=== PATIENT | female | born 1990 | race Hispanic/Latino ===

== ENCOUNTER 2017-07-31 08:37 | Observation (INO) | payer MEDICAID ==
[~2017-07-31] VITALS: Ht 165.1 cm; Wt 90.3 kg
[2017-07-31 10:05] LABS: APPEARANCE,URINE Clear (CLEAR); BILIRUBIN,URINE Negative (NEGATIVE); COLOR,URINE Yellow (YELLOW); GLUCOSE, URINE (UA) Negative (NEGATIVE); KETONES,URINE Negative (NEGATIVE); LEUKOCYTE ESTERASE ,URINE Large (NEGATIVE); NITRATE,URINE Negative (NEGATIVE); OCCULT BLOOD,URINE Negative (NEGATIVE); PH,URINE 8.5 (5.0-8.0); PROTEIN,URINE Negative (NEGATIVE); UROBILINOGEN,URINE 0.2 mg/dL (0.2-1.0)
[2017-07-31 11:02] LABS: BACTERIA,URINE Moderate /HPF (None Seen); RBC,URINE 0-1 /HPF (0-1); TRICHOMONAS,URINE Few /LPF (None Seen)
[2017-07-31] MEDS ORDERED: CEFTRIAXONE SODIUM 1 GM ONE (12:17)
[2017-07-31] MEDS ORDERED: LIDOCAINE HCL 1% 20 ML VIAL ONE (12:19)
[2017-07-31] MEDS ORDERED: CEFTRIAXONE SODIUM 1 GM IM SCH (12:45)
[2017-07-31] MEDS ORDERED: AZITHROMYCIN 250 MG TABLET PO SCH (12:46)
== END 2017-07-31 13:17 | disposition home or self-care (01) ==
LOC: EDH 08:37 → LDH 08:38
PROVIDERS: ADMIT Obstetrics & Gynecology; ATTEND Obstetrics & Gynecology
DX: O26.893 Other specified pregnancy related conditions, third trimester (principal); N89.8 Other specified noninflammatory disorders of vagina; Z3A.30 30 weeks gestation of pregnancy
CPT/HCPCS: 81001; 87486; 87797; 99285; G0378 ×5; J0696; 96372